=== PATIENT | male | born 2000 | race Caucasian/White ===

== ENCOUNTER 2023-05-03 07:05 | Day surgery (SDC) | payer BC, SELFPAY ==
[2023-05-03] VITALS (11 sets, daily range): BP systolic 111–147; BP diastolic 66–85; BMI 26.4
[2023-05-03] MEDS: NORMOSOL-R 1000 IV (09:05)
[2023-05-03] MEDS: TYLENOL 1000 MG PO (09:05)
[2023-05-03] MEDS: CELEBREX 200 MG PO (09:05)
[2023-05-03] MEDS: SUBLIMAZE 25 MCG IV (13:27)
== END 2023-05-03 15:20 | disposition home or self-care (01) ==
LOC: SDS 07:05
PROVIDERS: ATTENDING PHYSICIAN Orthopaedic Surgery
DX: S83.511A Sprain of anterior cruciate ligament of right knee, initial encounter (principal); S83.281A Other tear of lateral meniscus, current injury, right knee, initial encounter; X50.9XXA Other and unspecified overexertion or strenuous movements or postures, initial encounter; Y93.23 Activity, snow (alpine) (downhill) skiing, snowboarding, sledding, tobogganing and snow tubing
CPT/HCPCS: 29888; 29881; C1713